=== PATIENT | male | born 1985 | race Caucasian/White ===

== ENCOUNTER 2025-07-06 08:10 | Emergency (ER) | payer MEDICAID, SELFPAY ==
[2025-07-06 08:17] VITALS: BP 116/79; PULSE 100; RESP 16; TEMP 36.7; O2SAT 100; BMI 30.5
--- NOTE | 2025-07-06 08:23 | XR_ITS ---
EXAMINATION: Lumbar spine 3 views TECHNIQUE: AP lateral: Lateral lower lumbar spine 3 views Date and time: April 06, 2025, 0842 hours INDICATIONS: Low back pain beginning several months ago. FINDINGS: Satisfactory alignment lumbar vertebral bodies. No lumbar fracture. No significant lumbar disc narrowing. No spondylolisthesis IMPRESSION: No lumbar fracture or significant lumbar disc narrowing
[2025-07-06] MEDS: IBUPROFEN TAB 400 MG TABLET 800 MG PO (08:46)
--- NOTE | 2025-07-06 09:36 | EDNOTE_ITS ---
<Statement entered by Radha Oliva MD - 07/17/25 06:32> As co-signing physician, I was present and available for consult prn. I concur with the plan and care as documented by the midlevel provider. ED Back Injury Pain RME/HPI General Chief Complaint: Back Pain/Injury Stated Complaint: LOWER BACK PAIN (03/14) Time Seen by Provider: 07/06/25 08:40 Arrival date/time: 07/06/25 08:10 40-year-old male presents to the Emergency Department complaint of lower back pain patient reports pain worse with movement patient reports no recent injury no saddle anesthesia no loss of bowel or bladder no abdominal pain nausea vomiting or diarrhea. Limitations: no limitations Related Data Previous Rx's ?Medication ?Instructions ?Recorded acetaminophen 300 mg-codeine 15 mg 1 tab PO BID PRN pa in #10 tabs 01/22/22 tablet amoxicillin 875 mg-potassium 1 tab PO BID #14 tabs clavulanate 125 mg tablet cyclobenzaprine 10 mg tablet 10 mg PO TID PRN muscle s pasm 10 07/06/25 days #30 tab-caps ibuprofen 800 mg tablet 800 mg PO TID PRN pain #30 t abs 07/06/25 Allergies Allergy/AdvReac Type Severity Reaction Status Date / Time No Known Allergies Allergy Verified 07/06/25 08:13 Review of Systems Review of Systems Systems Reviewed: All systems reviewed, normal except as documented Constitutional Constitutional: Reports system reviewed and no additional complaints, except as documented, Denies fever(s) and Denies headache(s) Eyes Eyes: Reports system reviewed and no additional complaints, except as documented and Denies blurry vision ENT Ears, Nose, Mouth, and Throat: Reports system reviewed and no additional complaints, except as documented, Denies headache(s), Denies nasal congestion and Denies nasal discharge Cardiovascular Cardiovascular: Reports system reviewed and no additional complaints, except as documented, Denies chest pain and Denies dyspnea Respiratory Respiratory: Reports system reviewed and no additional complaints, except as documented, Denies chest congestion, Denies cough and Denies dyspnea Gastrointestinal Gastrointestinal: Reports system reviewed and no additional complaints, except as documented and Denies abdominal pain Musculoskeletal Musculoskeletal: Reports system reviewed and no additional complaints, except as documented and Reports back pain Integumentary/Breasts Skin/Breast: Reports system reviewed and no additional complaints, except as documented and Denies rash Neurologic Neurologic: Reports system reviewed and no additional complaints, except as documented, Reports as per HPI and Denies headache(s) Past Medical History Past Medical History NEUROLOGIC: Positive Epilepsy and Migraine CARDIAC: Positive Hypertension; Negative Cardiac Disorders or Congestive Heart Failure RESPIRATORY: Positive Asthma; Negative Chronic Obstructive Pulmonary Disease (COPD) GENITOURINARY: Negative Renal Disease ENDOCRINE: Negative Diabetes Mellitus Type 1 or Diabetes Mellitus Type 2 HEMATOLOGIC: Negative Sickle Cell Disease Social History SMOKING STATUS: Current some day smoker SUBSTANCE USE: marijuana and methamphetamine ED Exam General Limitations: Present no limitations General appearance: Present alert and in no apparent distress Head Head exam: Present atraumatic, normocephalic and normal inspection Eye Eye exam: Present normal appearance, PERRL and EOMI; Absent conjunctival injection ENT ENT exam: Present normal exam, normal oropharynx and mucous membranes moist Neck Neck exam: Present normal inspection, full ROM and trachea midline Chest Chest inspection: Present normal inspection and symmetric chest wall rise Respiratory Respiratory exam: Present normal lung sounds bilaterally Cardiovascular Cardiovascular exam: Present regular rate, normal rhythm and normal heart sounds Abdominal Exam Abdominal exam: Present soft and normal bowel sounds; Absent distention, tenderness, guarding or rebound Extremities Exam Extremities exam: Present normal inspection and full ROM Back Exam Back exam: Present full ROM, tenderness, muscle spasm and paraspinal tenderness; Absent CVA tenderness (R) or CVA tenderness (L) Neurological Exam Neurological exam: Present alert, oriented X3 and CN II-XII intact Psychiatric Psychiatric exam: Present normal affect and normal mood Skin Skin exam: Present warm, dry, intact and normal color Course Quality Measures none Orders Category Date Time Status XR lumbar spine 2-3V Stat Exams 07/06/25 08:23 Completed Ibuprofen Tab [Motrin Tab] Med 07/06/25 08:23 Discontinued 800 mg PO X1 ONE Vital Signs Vital signs: Vital Signs Temperature 98.0 F 07/06/25 08:17 Pulse Rate 100 07/06/25 08:17 Respiratory Rate 16 07/06/25 08:17 Blood Pressure 116/79 07/06/25 08:17 Pulse Oximetry (%) 100 07/06/25 08:17 Oxygen Delivery Method Room Air 07/06/25 08:17 o2 sat 100% r.a wnl Back Pain / Injury MDM Narrative MDM Narrative:: 40-year-old male presents to the Emergency Department complaint of lower back pain patient reports pain worse with movement patient reports no recent injury no saddle anesthesia no loss of bowel or bladder no abdominal pain nausea vomiting or diarrhea. On exam patient well-appearing does not appear look toxic patient walks with steady gait Imaging obtained no acute emergent findings noted Patient given pain medication Patient discharged home in no distress to follow-up with primary care doctor in the next 24 to 48 hours and for any worsening symptoms to return to the ER immediately Patient data External records reviewed:: [facility] previous records Clinical information provided by:: patient Social determinants that could affect healthcare access:: none Patient has the following chronic illnesses:: none How is presenting disease/condition affected by chronic disease/condition?: no chronic disease Evaluation data The following diagnostics were reviewed and interpreted by me:: radiology exam(s) Lab and/or radiology exams considered but not ordered:: Radiology obtained Interpretation Summary: reviewed by me Medications / Prescriptions Medications or Prescriptions considered but not ordered:: Given Medication administrations:: Medication Administration History Discontinued Medications Ibuprofen (Ibuprofen Tab 400 Mg Tablet) 800 mg PO X1 ONE Stop: 07/06/25 08:24 Last Admin: 07/06/25 08:46 Dose: 800 mg Documented By: VG given Consultations Consultation(s) initiated? (list below): No Diagnosis Differential diagnosis back pain/injury: lumbar radiculopathy, sciatica and strain of lumbar region Most likely diagnosis given after review of the tests above:: Back pain Admission Indicated Admission indicated?: not indicated Admission Request Was there a request for admission?: No Disposition Plan Disposition Plan: Discharge Discharge Attestation Discharge Attestation: The patient and all family members were given an opportunity to ask questions and understood the discharge instructions. Discharge instructions specifically effects, indications for sooner follow up or return to the emergency department, and the expected course of current diagnosis. Patient condition: Stable Discharge Plan Plan Patient Disposition: HOME (Self Care) Discharge Disposition comment: stable Prescriptions/Referrals Prescriptions/Med Rec: New cyclobenzaprine 10 mg tablet 10 mg PO TID PRN (Reason: muscle spasm) 10 Days Qty: 30 0RF ibuprofen 800 mg tablet 800 mg PO TID PRN (Reason: pain) Qty: 30 0RF No Action amoxicillin-pot clavulanate 875-125 mg tablet 1 tab PO BID Qty: 14 0RF acetaminophen-codeine 300-15 mg tablet 1 tab PO BID PRN (Reason: pain) Qty: 10 0RF Referrals: Hussain Soto MD [Primary Care Provider] - 07/07/25 Problem List Clinical Impression: Strain of lumbar region Patient/Caregiver Discharge Instructions Education Materials: ED Back Sprain/Strain Additional Instructions: Please follow up with your primary care doctor in the next 24-48hrs for any worsening symptoms return here immediately Print Language: Welsh Stand Alone Forms: [place] Award Info., Patient Portal Info Letter PA/EAP CONSULTANT Supervising Physician PA/EAP CONSULTANT Supervising Physician: dr oliva
== END 2025-07-06 10:39 | disposition home or self-care (01) ==
PROVIDERS: Emergency Provider Nurse Practitioner Primary Care; PCP Family Medicine
DX: S39.012A Strain of muscle, fascia and tendon of lower back, initial encounter (principal); X58.XXXA Exposure to other specified factors, initial encounter
CPT/HCPCS: 72100; 99282; A9270